=== PATIENT | female | born 1995 | race African-American/Black ===

== ENCOUNTER → 2017-07-31 | Outpatient (CLI) | payer OTHER ==
--- NOTE | 2017-07-31 22:16 | DIAGNOSTIC IMAGING REPORT ---
Brain MRI WITH AND WITHOUT CONTRAST HISTORY: DIZZINESS AND UNSTEADINESS X 2 WKS, S/P FALLS TECHNIQUE: Multiplanar multisequence MRI of the brain was performed both before and after the intravenous administration of contrast. COMPARISON STUDY: None. FINDINGS: There are no areas of restricted diffusion to suggest acute infarction. The midline structures are intact. Mild mucosal thickening within the maxillary sinuses. No fluid levels. The mastoid air cells are clear. The ventricles and sulci are within normal limits for age. There is no mass, hematoma, midline shift. The major vascular flow-voids at the skull base are well maintained. Postcontrast sequences show no areas of abnormal enhancement. IMPRESSION: No acute intracranial abnormality. Electronically signed by: Sourav Liang M.D. 07/31/2017 10:14 PM Dictated Date/Time: 07/31/2017 10:03 PM
== END | disposition home or self-care (01) ==
LOC: C.MRI 19:45
PROVIDERS: ATTEND Emergency Medicine
DX: R42 Dizziness and giddiness (principal)

== ENCOUNTER → 2018-03-01 | Outpatient (CLI) | payer OTHER | END | disposition home or self-care (01) | LOC: C.RDSM 15:39 | PROVIDERS: ATTEND Orthopaedic Surgery Sports Medicine | DX: S62.002A Unspecified fracture of navicular [scaphoid] bone of left wrist, initial encounter for closed fracture (principal); X58.XXXA Exposure to other specified factors, initial encounter ==

== ENCOUNTER 2021-04-23 09:51 | Inpatient (IN) ==
[2021-04-23] MEDS ORDERED: OXYTOCIN 30 UNITS/500 ML BAG IV PRN ×2 (11:18→11:24)
--- NOTE | 2021-04-23 11:30 | Labor Progress Brief Note ---
Date of Service April 23, 2021 Subjective Patient presents to L&D with c/o ROM occurring at 1900 last night for clear fluid, some vaginal spotting, good FM, and contractions uncomfortable Q8m as of this morning. Did not contact o/c or office until this morning and was sent right to L&D where ROM was confirmed. Review of Systems All systems reviewed & are unremarkable except as noted in HPI & below Assessment & Plan (1) PROM (premature rupture of membranes): PROM at 1900 last night, GBS neg, needs IOL as labor not begun in earnest. Discussed with pt / FOB, agreeable. Epidural on request. Physical Exam Constitutional: WD/WN, vitals as above Eyes: PERRL, conjunctivae normal, anicteric sclerae ENMT: external ear and nose normal, oropharynx normal Neck: supple Respiratory: normal respiratory effort and able to speak in complete sentences; no respiratory distress Cardiovascular: Rate/Rhythm: regular rate and regular rhythm Extremities: + pedal edema Gastrointestinal (Abdomen): Gravid / AGA, nontender Musculoskeletal: no cyanosis or clubbing, extremities motor strength 5/5 Skin: no rashes, warm and dry Neurologic: patellar DTR's 2+ bilat, sensation intact Psychiatric: A+Ox3, euthymic affect Genitourinary: Speculum/Bimanual Exam: no vaginal lesions, no vaginal bleeding and uterus nontender OB Exam Abdomen: + vertex, + estimated weight (6- 7) and + regular contractions (Q8) Manual OB Exam: + cervical dilation (1), + cervical effacement 80%, + station -2 and + amniotic fluid clear, nitrazine positive and ferning present OB Exam Monitor Tracing: + external FHT monitor used, + external uterine monitor used and + category I soft, anterior cervix Lymphatic: no cervical or axillary lymphadenopathy Results & Data ([facility]) Vital Signs (Past 12 Hours) Vital Signs Temp Pulse Resp BP 04/23/21 09:59 97.5 F L 97 H 20 121/78 Coding Level of Care Code None Diagnoses PROM (premature rupture of membranes) O42.90
[2021-04-23 11:39] LABS: Hematocrit (blood only) 39.7 % (37-47); Hemoglobin 13.6 g/dL (12.0-16.0); Mean Corpuscular Hemoglobin 29.7 pg (25-34); Mean Corpuscular Hgb Conc 34.3 g/dL (32-36); Mean Corpuscular Volume 86.7 fL (80-100); Mean Platelet Volume 9.2 fL (7.4-10.4); Platelet Count 227 K/uL (130-400); RDW Coefficient of Variation 14.1 % (11.5-14.5); RDW Standard Deviation 44.5 fL (36.4-46.3); Red Blood Count 4.58 M/uL (4.2-5.4)
[2021-04-23] MEDS: LACTATED RINGER'S 1,000 ML IV PRN ×3 (12:09→22:42)
--- NOTE | 2021-04-23 16:35 | Labor Progress Brief Note ---
Date of Service April 23, 2021 Subjective Patient tolerating ctx, might want epidural "in an hour or so." Assessment & Plan (1) PROM (premature rupture of membranes): IOL continues, epidural on request. Admission and Anticipated Discharge Date Admission Date: April 23, 2021 Physical Exam Physical Exam: / with forebag palpable; ruptured for increased flow of fluid, now appears light mec. FHT Cat 1 currently [place] Q2-3 Pit @ 11 on pump in room Results & Data ([facility]) Vital Signs (Past 12 Hours) Vital Signs Temp Pulse Resp BP 04/23/21 15:43 97.7 F 87 18 122/76 04/23/21 14:41 96 H 124/81 04/23/21 14:28 96 H 113/77 04/23/21 14:05 18 04/23/21 13:04 97.7 F 90 16 121/79 04/23/21 09:59 97.5 F L 97 H 20 121/78 Coding Level of Care Code None Diagnoses PROM (premature rupture of membranes) O42.90
[2021-04-23] MEDS ORDERED: ePHEDrine sulfate 50 MG/ML AMP ONE (17:08)
[2021-04-23] MEDS ORDERED: SODIUM CHLORIDE 0.9% INJ 10 ML VIAL ONE (17:08)
[2021-04-23] MEDS ORDERED: BUPIVACAINE 0.25% 30 ML VIAL ONE (17:08)
[2021-04-23] MEDS ORDERED: fentaNYL citrate 100 MCG/2 ML VIAL ONE (17:09)
[2021-04-23] MEDS ORDERED: fentaNYL 2MCG/ML ROPIVACAINE 1.25MG/ML 100 ML BAG EPI ONE (17:09)
[2021-04-23] MEDS ORDERED: ONDANSETRON INJ 2 MG/ML 2 ML VIAL IV PRN (17:37)
[2021-04-23] MEDS ORDERED: diphenhydrAMINE 50 MG/ML VIAL IV PRN (17:37)
[2021-04-23] MEDS ORDERED: fentaNYL 2MCG/ML ROPIVACAINE 1.25MG/ML 100 ML BAG EPI PRN (17:37)
[2021-04-23] MEDS ORDERED: NALOXONE HCL 0.4 MG/1 ML VIAL/CARP IV PRN (17:37)
[2021-04-23] MEDS ORDERED: NALOXONE HCL 1 MG in SODIUM CHLORIDE 0.9% 1000ML 1,000 ML IV PRN (17:37)
[2021-04-23] MEDS ORDERED: ePHEDrine sulfate 50 MG/ML AMP IV PRN (17:37)
--- NOTE | 2021-04-23 17:37 | Anesthesiology Consultation ---
Date of Service April 23, 2021 Assessment & Plan ASA ASA2 Proposed Anesthesia Anesthesia Type: Labor Epidural Risk / Benefits Reviewed With: PT / POA / Parent / Guardian, Accepts Plan and Informed Consent Obtained History Height/Weight Height: 4 ft 11 in Weight: 66.678 kg Allergies Allergy/AdvReac Type Severity Reaction Status Date / Time adhesive tape AdvReac Rash Verified 04/21/21 15:33 Medications Home Medications Medication Instructions Recorded Confirmed Last Taken prenat.vits,adam,syo-[id number] 1 tab PO DAILY 08/31/20 04/23/21 04/22/21 12:00 levothyroxine 112 mcg PO DAILY 04/20/21 04/23/21 04/23/21 08:00 cyanocobalamin (vitamin B-12) 1,000 mcg PO DAILY 04/23/21 04/23/21 04/23/21 08:00 [Vitamin B-12] Active Medications Generic Name Dose Route Start Last Admin Trade Name Freq PRN Reason Stop Dose Admin Lactated Ringer's 1,000 mls @ 125 mls/hr 04/23/21 11:18 04/23/21 17:40 Lr IV 04/25/21 11:17 999 mls/hr .Q8H PRN Administration L&D Protocol Protocol Oxytocin 30 units in 500 mls @ 13 mls/hr 04/23/21 11:24 04/23/21 16:35 Pitocin IV 04/25/21 11:23 0.78 units/hr .Q24H PRN 13 mls/hr Labor Induction/Augmentation Titration Protocol 0.78 UNITS/HR Past Medical History Medical History ADHD ADHD Asthma History of chicken pox Hypothyroid Subchorionic hematoma in first trimester Exercise / Class Metabolic Activity II 4-5 Yardwork/Stairs/Walk up hill Past Family History Family History Grandmother (Maternal) Breast cancer Mother Thalassemia Hypertension Hypothyroid Clotting disorder Sister Thalassemia Denies family history of Ovarian cancer Colorectal cancer Past Surgical History Surgical History S/P tonsillectomy Past Anesthesia History No Hx of Anesthesia Complications and No Family Hx of Anesthesia Complications History of PONV No Hx of PONV and No Hx of Motion Sickness Social History Smoking Status: Never smoker Do You Dip or Chew Tobacco: No Hx Alcohol Use: No Hx Substance Use: No substance use type: does not use Review of Systems denies fever/cough/ colds/ chest pain/ SOB/ CHAVA denies CHAVA Physical Exam Vital Signs Last Vital Signs Temp 36.5 C 04/23/21 15:43 Pulse 99 H 04/23/21 18:21 Resp 18 04/23/21 15:43 BP 125/80 04/23/21 18:19 Pulse Ox 100 04/23/21 18:21 ENMT Mouth: no TMJ abnormality and no dentition abnormality Thyromental Distance: > or= 3.5 Finger Breadths Mallampati Class: II Neck neck extension not limited Respiratory normal respiratory effort; no respiratory distress Auscultation: lungs clear to auscultation bilaterally Cardiovascular Rate/Rhythm: regular rate and regular rhythm Neurologic moves all extremities Psychiatric Orientation: alert and oriented x 3 Testing Laboratory Results 04/23/21 11:25
--- NOTE | 2021-04-23 20:25 | Labor Progress Brief Note ---
Date of Service April 23, 2021 Subjective Reason For Note: Routine Evaluation Comfortable with Epidural Assessment & Plan Admission and Anticipated Discharge Date Admission Date: April 23, 2021 Physical Exam Genitourinary: Manual OB Exam: + cervical dilation 5 cm, + cervical effacement 90% and + station -1 OB Exam Monitor Tracing: + category I Results & Data ([facility]) Vital Signs (Past 12 Hours) Vital Signs Temp Pulse Resp BP Pulse Ox 04/23/21 20:21 91 H 129/82 100 04/23/21 20:16 91 H 100 04/23/21 20:11 91 H 100 04/23/21 20:06 93 H 136/86 100 04/23/21 20:01 95 H 100 04/23/21 20:00 16 04/23/21 19:56 93 H 100 04/23/21 19:51 93 H 100 04/23/21 19:50 92 H 128/83 04/23/21 19:46 100 H 100 04/23/21 19:41 89 100 04/23/21 19:36 93 H 131/84 100 04/23/21 19:31 94 H 100 04/23/21 19:30 16 04/23/21 19:26 104 H 100 04/23/21 19:21 97 H 100 04/23/21 19:20 89 123/77 04/23/21 19:16 95 H 100 04/23/21 19:11 88 100 04/23/21 19:06 96 H 100 04/23/21 19:04 97.7 F 91 H 18 122/74 04/23/21 19:01 92 H 100 04/23/21 18:59 94 H 18 118/71 04/23/21 18:56 91 H 100 04/23/21 18:55 93 H 122/75 04/23/21 18:51 92 H 100 04/23/21 18:50 88 118/83 04/23/21 18:46 92 H 100 04/23/21 18:45 96 H 18 124/74 04/23/21 18:41 94 H 100 04/23/21 18:39 95 H 127/78 04/23/21 18:37 87 123/78 04/23/21 18:36 92 H 100 04/23/21 18:35 92 H 126/82 04/23/21 18:31 100 H 100 04/23/21 18:30 97 H 18 137/76 04/23/21 18:26 85 125/82 100 04/23/21 18:21 99 H 100 04/23/21 18:19 93 H 125/80 04/23/21 18:16 93 H 20 128/82 100 04/23/21 18:14 89 126/79 04/23/21 18:13 92 H 119/77 04/23/21 18:11 94 H 18 127/75 100 04/23/21 18:09 94 H 130/77 04/23/21 18:07 92 H 138/82 04/23/21 18:06 93 H 100 04/23/21 18:05 108 H 20 136/90 04/23/21 18:03 87 133/86 04/23/21 18:01 98.2 F 86 18 134/86 100 04/23/21 17:59 85 131/79 04/23/21 17:57 95 H 138/79 04/23/21 17:56 102 H 100 04/23/21 17:55 98 H 144/89 H 04/23/21 17:51 80 100 04/23/21 17:46 87 100 04/23/21 17:42 88 137/88 04/23/21 16:43 85 132/87 04/23/21 15:43 97.7 F 87 18 122/76 04/23/21 14:41 96 H 124/81 04/23/21 14:28 96 H 113/77 04/23/21 14:05 18 04/23/21 13:04 97.7 F 90 16 121/79 04/23/21 09:59 97.5 F L 97 H 20 121/78 Coding Level of Care Code None
[2021-04-23] MEDS ORDERED: ACETAMINOPHEN 325 MG TAB PO PRN (22:45)
--- NOTE | 2021-04-24 01:37 | Delivery Summary ---
Vaginal Delivery Summary Date of Service April 24, 2021 Vaginal Delivery Summary DIAGNOSES: 1. Metcalf intrauterine at 39w6d gestation. 2. PROM followed by IOL. 3. Group B Streptococcus Neg 4. Prolonged ROM (occurred 19004/22, patient admitted 9am 04/23, delivery around 1am 04/24) without fever PROCEDURE: Spontaneous vaginal delivery and repair of equivalent of 2nd degree (midline episiotomy without extension). SURGEON: Anastasiya Sanchez MD. WAREHOUSE HELPER: None. ESTIMATED BLOOD LOSS: 350 mL. COMPLICATIONS: None. PLACENTA: Spontaneous and intact with a 3-vessel cord. DISPOSITION: Stable to labor and delivery. DESCRIPTION: The patient pushed well and brought the head to in DOA position. Due to small introitus, long perineum and significant labial swelling, causing concern for potentially complex and/or high degree laceration, the patient was offered midline episiotomy. Pros and cons were reviewed. She did request that episiotomy be created, and this was done using bandage scissors during a push, creating the equivalent of a second-degree laceration in the midline. The 's head was allowed to deliver with the next push, with the perineum protected during this time via a warm compress. There was a loose nuchal cord reduced at the perineum. The left shoulder was anterior. The shoulders and body delivered without any difficulty, and the infant was placed on the maternal abdomen. It was vigorous and moving all extremities, and making respiratory efforts. The cord was doubly clamped by the MD and then cut by the FOB. The placenta delivered spontaneously and was noted to be intact and with a 3VC. The cervix, vagina and perineum were examined and were found to have only the midline epis without extension, which was repaired as typical for a second degree, using vicryl suture with a crown stitch to rebuild the perineal body. Following repair, rectal exam confirmed the absence of suture or inury. The fundus was firm and lochia minimal immediately after delivery. Straight catheter was also used to release approx 100cc clear yellow urine after betadine prep of the urethral area. [facility] Vaginal Delivery Charge Vaginal Delivery Codes: 96955 global code for the antepartum, delivery, and post-
[2021-04-24] MEDS ORDERED: BENZOCAINE 20% AER SPR 82.5 GM CAN EXT PRN (02:04)
[2021-04-24] MEDS ORDERED: DIPHTHERIA/TETANUS/PERTUSSIS 0.5 ML SYR/VIAL IM ONE (02:04)
[2021-04-24] MEDS ORDERED: SUPERCREAM 0.870% 15 GM JAR EXT PRN (02:04)
[2021-04-24] MEDS ORDERED: HYDROCORTISONE ACETATE 25 MG SUPP PR PRN (02:04)
[2021-04-24] MEDS: IBUPROFEN 600 MG TAB PO PRN ×5 (03:04→22:07)
[2021-04-24] MEDS: ACETAMINOPHEN 325 MG TAB PO PRN (04:53)
[2021-04-24] MEDS: LEVOTHYROXINE SODIUM 112 MCG TABLET PO SCH (06:32)
[2021-04-24] MEDS: DOCUSATE SODIUM 100 MG CAP PO SCH ×2 (09:14→20:34)
[2021-04-24] MEDS: PRENATAL VITAMIN 1 TAB PO SCH (09:14)
--- NOTE | 2021-04-24 09:45 | Anesthesia Procedure Note ---
Date of Service April 24, 2021 Anesthesia Post Epidural Note Vital Signs Vital Signs: Temp Pulse Resp BP Pulse Ox 36.5 C 85 16 125/88 98 04/24/21 04:15 04/24/21 04:15 04/24/21 04:15 04/24/21 04:15 04/24/21 04:15 Pain Intensity Lower Medial Abdomen: Pain Intensity: 0 Episiotomy/Laceration: Pain Intensity: 2 Notes Mental Status: alert / awake / arousable and participated in evaluation Nausea / Vomiting: adequately controlled Pain: adequately controlled Airway Patency, RR, SpO2: stable & adequate BP & HR: stable & adequate Hydration State: stable & adequate Neuraxial Anesthesia: was administered and sensory block is resolving Anesthetic Complications: no major complications apparent and Pt Satisfied with anesthetic care Epidural: Removed without complications and With tip intact Notes: Epidural site clean, dry and intact. No signs of edema, erythema or bruising at insertion site. Pt instructed to request anesthesia if she has residual lower extremity numbness or if she develops lower extremity pain or weakness, back pain or headache.
[2021-04-24] MEDS: oxyCODONE/ACETAMINOPHEN 5mg/325mg TAB PO PRN (22:07)
[2021-04-25] MEDS: oxyCODONE/ACETAMINOPHEN 5mg/325mg TAB PO PRN ×2 (06:32→11:38)
[2021-04-25] MEDS: IBUPROFEN 600 MG TAB PO PRN ×3 (06:33→20:52)
[2021-04-25] MEDS: LEVOTHYROXINE SODIUM 112 MCG TABLET PO SCH (06:34)
[2021-04-25 06:50] LABS: Hematocrit (blood only) 33.2 % (37-47); Hemoglobin 11.5 g/dL (12.0-16.0); Mean Corpuscular Hemoglobin 29.2 pg (25-34); Mean Corpuscular Hgb Conc 34.6 g/dL (32-36); Mean Corpuscular Volume 84.3 fL (80-100); Mean Platelet Volume 9.1 fL (7.4-10.4); Platelet Count 199 K/uL (130-400); RDW Standard Deviation 43.4 fL (36.4-46.3); Red Blood Count 3.94 M/uL (4.2-5.4); White Blood Count 13.63 K/uL (4.8-10.8)
[2021-04-25] MEDS: PRENATAL VITAMIN 1 TAB PO SCH (08:21)
[2021-04-25] MEDS: DOCUSATE SODIUM 100 MG CAP PO SCH ×2 (08:21→20:52)
--- NOTE | 2021-04-25 09:13 | Obstetrical Progress Note ---
Date of Service April 25, 2021 Assessment & Plan (1) Encounter for care and examination after delivery: Day 1 following . Doing well. Routine care Subjective Ambulation: ambulating normally Voiding: no voiding problems Passing Gas:: Yes Diet Tolerance:: regular diet Lochia:: Small Physical Exam Constitutional WD/WN, vitals as above Respiratory normal respiratory effort; no respiratory distress and no labored breathing Gastrointestinal (Abdomen) Inspection/Auscultation: abdomen normal to inspection; abdomen not distended Percussion/Palpation: abdomen soft; abdomen nontender, no guarding and abdomen not rigid Genitourinary OB Exam Abdomen: + fundal height Fundus: + firm and + relation to umbilicus (Below); not tender and not boggy Results & Data ([facility]) Vital Signs (Past 12 Hours) Vital Signs Temp Pulse Resp BP 04/25/21 03:00 36.9 C 90 18 126/78
[2021-04-25] MEDS: ACETAMINOPHEN 325 MG TAB PO PRN ×2 (16:19→23:06)
[2021-04-26] MEDS: IBUPROFEN 600 MG TAB PO PRN ×2 (05:00→09:39)
[2021-04-26] MEDS: LEVOTHYROXINE SODIUM 112 MCG TABLET PO SCH (06:38)
[2021-04-26 06:59] LABS: Hematocrit (blood only) 32.8 % (37-47)
--- NOTE | 2021-04-26 07:32 | Obstetrical Progress Note ---
Date of Service April 26, 2021 Assessment & Plan (1) Encounter for care and examination after delivery: 25yo day 2 s/p . Doing well. Stable for discharge Subjective Ambulation: ambulating normally Voiding: no voiding problems Passing Gas:: Yes Diet Tolerance:: regular diet Lochia:: Moderate Feeding Type:: breast feeding Physical Exam Constitutional WD/WN, vitals as above Respiratory normal respiratory effort; no respiratory distress and no labored breathing Gastrointestinal (Abdomen) Inspection/Auscultation: abdomen normal to inspection; abdomen not distended Percussion/Palpation: abdomen soft; abdomen nontender, no guarding and abdomen not rigid Genitourinary OB Exam Abdomen: + fundal height Fundus: + firm and + relation to umbilicus (Below); not tender and not boggy Results & Data ([facility]) Vital Signs (Past 12 Hours) Vital Signs Temp Pulse Resp BP Pulse Ox 04/25/21 23:00 36.7 C 81 16 123/86 99 04/25/21 20:50 36.7 C 80 17 129/87 100
[2021-04-26] MEDS: DOCUSATE SODIUM 100 MG CAP PO SCH (08:34)
[2021-04-26] MEDS: PRENATAL VITAMIN 1 TAB PO SCH (08:34)
== END 2021-04-26 11:40 | disposition home or self-care (01) | DRG 807 ==
LOC: OPB 09:51 → 4S1 09:52 → 4S2 04-24 04:16